=== PATIENT | male | born 1945 | race Two or more races ===

== ENCOUNTER 2020-05-01 17:25 | Outpatient (RCR) | payer MEDICARE, OTHER, SELFPAY ==
[2020-05-01] MEDS: COVID-19 VACC, MRNA(PFIZER)/PF 30 MCG/0.3 ML SYRINGE IM (16:02)
[2020-05-22] MEDS: COVID-19 VACC, MRNA(PFIZER)/PF 30 MCG/0.3 ML SYRINGE IM (15:28)
== END 2020-08-05 23:59 ==
LOC: IMMUN 17:25
PROVIDERS: Visit Provider Family Medicine
DX: Z23 Encounter for immunization (principal)
CPT/HCPCS: 0001A; 0002A; 91300

== ENCOUNTER → 2023-03-25 | Outpatient (CLI) | payer MEDICARE, OTHER, SELFPAY ==
--- NOTE | 2023-03-25 | HIP_PTH ---
PATHOLOGY RESULTS PATIENT: JOSEMANUEL PATTON LOC: [facility] U#:[id number] AGE/SX: 77/M ROOM: RE03/25/[address]: Dr. Familia Joya DO : 1945 BED: DIS: 03/25/2023 SPEC #: [id number] RECD: 03/25/23 15:19 STATUS: KENDALL REBetito #: [id number] JAMES: 03/25/23 00:[address]: Familia Joya DEPT: SURGICAL PATHOLOGY RECD BY: Jean-Pierre Luque ENTERED: 03/28/23 09:40 SP TYPE: TOTAL HIP OTHR DR: DIANA Tissues: Hip, NOS Procedures: Decalcification bone/plaque Surgery Specimen Level IV HEADER OPERATION: Right total hip arthroplasty PRE-OP DIAGNOSIS: Primary osteoarthritis right hip TISSUE SUBMITTED: Bone and tissue right hip MICROSCOPIC DIAGNOSIS Bone and tissue of right hip, total hip resection: Severe degenerative joint disease. AM:mian 03/31/2023 MICROSCOPIC DESCRIPTION Slides are reviewed. GROSS DESCRIPTION Received is one container labeled with the patient's name and designated bone and soft tissue right hip. The specimen consists of a hernandez femoral head with portion of femoral neck. The femoral head measures 5.5 x 5.5 x 5.0 cm and the femoral neck measures 1.5 cm in length. The articular surface displays prominent osteophyte formation, eburnation and bone erosion. Also present in the specimen container are multiple irregular fragments of bone reamings and pink-yellow soft tissue measuring in aggregate 10.0 x 9.0 x 3.0 cm. Shaft Mechanic sections are submitted in two cassettes as follows: 1 - soft tissue, 2??bone after decalcification. / SJ:mian 03/28/2023 TC:5 [facility]: [id number], [id number]
--- OUTSIDE RECORDS SUMMARY | 2023-03-25 15:59 | XMS RPT_ITS | CCD ---
Author Name Unknown Address [address] [place] [address] Organization [facility] Care Team Providers Care Land Manager Name Role Phone DANY MEDRANO, CHENG Giron Primary Care Physician Unavailable Primary Care Provider Crystal Saenz MD, Cheng Dhaliwal Primary Care Provider Dany MEDRANO, Cheng Dhaliwal Primary Care Provider [phone]( [phone] CHENG SAENZ MD Primary Care Unavailable DANY MEDRANO, CHENG Giron Attending Mago SAENZ MD, CHENG Giron Primary Care Unavailable CLARISSA COX, DR WEST Attending Crystal ROMO DO, DR WEST Attending Crystal SAENZ MD, CHENG Giron Primary Care Unavailable CHENG SAENZ MD Primary Care Unavailable DANY MEDRANO, CHENG Giron Attending Mago ROMO DO, DR WEST Attending Crystal SAENZ MD, CHENG Giron Primary Care Unavailable VALERIE ESPITIA Attending Mago BEARD MD, BELINDA Attending Crystal BEARD MD, BELINDA Referring Crystal BEARD MD, BELINDA Referring Crystal BEARD MD, BELINDA Referring Crystal bowman Allergies Allergy Classification Reported Allergen(s) Allergy Type Date of Onset Reaction(s) Facility (5 sources) terbinafine; Translations: [TERBINAFINE] Drug Allergy 10-18-2022 Rash [facility] Work Phone: Medications Current Medications Medication Drug Class(es) Dates Sig (Normalized) Sig (Original) 8 hr acetaminophen 650 mg extended release oral tablet (1 source) Start: 02-11-2023 Tylenol 8 HR Arthritis Pain 650 mg oral tablet, extended release Dose : 1,300 mg = 2 tab(s), Oral, q8h, PRN as needed for pain, # 24 tab(s), 0 Refill(s) Start Date: 02/11/23 Status: Ordered apixaban 5 mg oral tablet (19 sources) Factor Xa Inhibitor Start: 02-28-1968 End: 03-15-2023 Eliquis 5 mg oral tablet Dose : 5 mg = 1 tab(s), Oral, BID, # 180 tab(s), 3 Refill(s), Pharmacy: [id number], 182, cm, 03/11/22 9:59:00 EST, Height, 94.5 Start Date: 03/11/22 Stop Date: 03/06/23 Status: Ordered Completed/Discontinued Medications Medication Drug Class(es) Dates Sig (Normalized) Sig (Original) cholecalciferol, vitamin D3, (VITAMIN D3 ORAL) (1 source) Start: 04-24-2013 End: 04-08-2022 cholecalciferol, vitamin D3, (VITAMIN D3 ORAL) Take by mouth. 0 04/24/2013 04/08/2022 Discontinued Problems Active Problems Problem Classification Problem Date Documented Date Episodic/Chronic Cardiac dysrhythmias (20 sources) Chronic atrial fibrillation; Translations: [Paroxysmal atrial fibrillation] Onset: 09-19-2018 12-26-2020 Chronic Conduction disorders (20 sources) Complete atrioventricular block; Translations: [Atrioventricular block, complete] Onset: 09-19-2018 Chronic Coronary atherosclerosis and other heart disease (14 sources) Ischemic chest pain; Translations: [Chronic ischemic heart disease, unspecified] Onset: 09-19-2018 Chronic Disorders of lipid metabolism (17 sources) Mixed hyperlipidemia; Translations: [Mixed hyperlipidemia] Onset: 03-17-2022 12-26-2020 Chronic Essential hypertension (11 sources) Hypertensive disorder; Translations: [Essential (primary) hypertension] Onset: 09-19-2018 04-08-2022 Chronic Mycoses (15 sources) Onychomycosis; Translations: [Tinea unguium] Onset: 04-08-2022 12-26-2020 Episodic Osteoarthritis (19 sources) Osteoarthritis of hip; Translations: [Unilateral primary osteoarthritis, right hip] Onset: 04-08-2022 Chronic Other non-traumatic joint disorders (7 sources) Hip pain; Translations: [Pain in unspecified hip] Onset: 10-18-2022 03-11-2022 Episodic Melva-; endo-; and myocarditis; cardiomyopathy (except that caused by tuberculosis or sexually transmitted disease) (14 sources) Cardiomyopathy; Translations: [Other cardiomyopathies] Onset: 06-16-2018 Chronic Unclassified (3 sources) Patient encounter status 03-11-2022 Past or Other Problems Problem Classification Problem Date Documented Date Episodic/Chronic Other screening for suspected conditions (not mental disorders or infectious disease) (3 sources) Electrocardiogram abnormal; Translations: [Abnormal electrocardiogram [ECG] [EKG]] Onset: 05-14-2022 Episodic Results Test Name Value Interpretation Reference Range Facil ity Vital Signs Date Time Vital Sign Value Performing Clinician Lam baum 10-18-2022 13:04-0400 Body height 182.9 cm Valerie Espitia PA-C Work Phone: [facility] 10-18-2022 13:04-0400 Body weight 92.31 kg Valerie Espitia PA-C Work Phone: [facility] 10-18-2022 13:04-0400 Diastolic blood pressure 72 mm[Hg] Valerie Espitia PA-C Work Phone: [facility] 10-18-2022 13:04-0400 Heart rate 68 /min Valerie Espitia PA-C Work Phone: [facility] 10-18-2022 13:04-0400 SaO2% (BldA) [Mass fraction] 94 % Valerie Espitia PA-C Work Phone: [facility] 10-18-2022 13:04-0400 Systolic blood pressure 146 mm[Hg] Valerie Espitia PA-C Work Phone: [facility] 04-08-2022 11:33-0500 Body height 182.9 cm Belinda Beard MD Work Phone: [facility] 04-08-2022 11:33-0500 Body weight 93.98 kg Belinda Beard MD Work Phone: [facility] 04-08-2022 11:33-0500 Diastolic blood pressure 89 mm[Hg] Belinda Beard MD Work Phone: [facility] 04-08-2022 11:33-0500 Heart rate 65 /min Belinda Beard MD Work Phone: [facility] 04-08-2022 11:33-0500 SaO2% (BldA) [Mass fraction] 98 % Belinda Beard MD Work Phone: [facility] 04-08-2022 11:33-0500 Systolic blood pressure 173 mm[Hg] Belinda Beard MD Work Phone: [facility] Encounters Encounter Date Encounter Type Care Provider Facility Start: 03-03-[address] JENNA ROMO DO Fa cility:B Start: 03-02-2023 End: 03-03-[address] JENNA ROMO DO Facility:[facility] Start: 03-02-2023 End: 03-02-[address] JENNA ROMO DO [facility] Start: 02-14-2023 Telephone encounter Belinda Beard MD Work Phone: [facility] Cardiology Procedures Date Procedure Procedure Detail Performing Clinician Start: 10-18-2022 Follow-up visit Follow Up VALERIE ESPITIA Start: 05-14-2022 Myocardial spect mul tiple studies Belinda Beard MD Work Phone: Start: 10-05-2018 Electrocardiogram Start: 09-14-2018 Echocardiography Start: 06-15-2018 Maintenance procedur e for cardiac pacemaker system CHENG SAENZ MD Plan of Treatment Date Care Activity Detail Author Start: 10-29-2022 Covid-19 Vaccine () Covid-19 Vaccine () [facility] Start: 10-29-2022 Influenza vaccination [facility] Start: 02-28-2022 ADVANCE DIRECTIVE DISCUSSION ADVANCE DIRECTIVE DISCUSSION [facility] Start: 02-28-2022 DEPRESSION ASSESSMENT DEPRESSION ASSESSMENT [facility] Start: 10-29-2021 Influenza vaccination INFLUENZA (#1) [facility] Start: 10-05-2021 DIABETES SCREEN DIABETES SCREEN [facility] Start: 10-05-2021 Diabetes Screening Diabetes Screening [facility] Start: 07-17-2020 COVID-19 VACCINE (3 - Booster for Pfizer series) COVID-19 VACCINE (3 - Booster for Pfizer series) [facility] Start: 07-17-2020 COVID-19 VACCINE (3 - Pfizer series) COVID-19 VACCINE (3 - Pfizer series) [facility] Start: 2011 PNEUMOCOCCAL: 65+ (1 - PCV) PNEUMOCOCCAL: 65+ (1 - PCV) [facility] Start: 2006 RSV Vaccine (1 - 1-dose 60+ series) RSV Vaccine (1 - 1-dose 60+ series) [facility] Start: 1996 SHINGRIX VACCINE (1 of 2) SHINGRIX VACCINE (1 of 2) [facility] Start: 1991 COLOGUARD (FIT-DNA) COLOGUARD (FIT-DNA) [facility] Start: 1991 Colonoscopy COLONOSCOPY [facility] Start: 1991 COLORECTAL CANCER SCREENING COLORECTAL CANCER SCREENING [facility] Start: [address] COLONOGRAPHY [facility] Start: 1991 FECAL OCCULT BLOOD FECAL OCCULT BLOOD [facility] Start: 1991 SIGMOIDOSCOPY SIGMOIDOSCOPY [facility] Start: 1981 LIPID SCREEN LIPID SCREEN [facility] Start: 1965 Urine microalbumin profile [facility] Start: 1964 ANNUAL PCP TEAM CHRONIC DISEASE VISIT ANNUAL PCP TEAM CHRONIC DISEASE VISIT [facility] Start: 1964 BP CONTROLLED (<130/80) BP CONTROLLED (<130/80) [facility] in Start: 1964 Hepatitis B surface antibody level LDL CHOLESTEROL [facility] Start: 1964 HEPATITIS C SCREENING HEPATITIS C SCREENING [facility] Start: 1964 Hepatitis C screening Hepatitis C Screening [facility] Start: 1952 Pneumococcal Vaccine: 65+ (1 - PCV) Pneumococcal Vaccine: 65+ (1 - PCV) [facility] Start: 1952 Pneumococcal Vaccine: 65+ (1 of 2 - PCV) Pneumococcal Vaccine: 65+ (1 of 2 - PCV) [facility] Start: 1952 PNEUMOCOCCAL: 65+ (1 - PCV) PNEUMOCOCCAL: 65+ (1 - PCV) [facility] End: 04-08-2023 Echocardiography ECHO Cardiology Routine AV block, complete (HCC) Nonischemic cardiomyopathy (HCC) 1 Occurrences starting 04/08/2022 until 04/08/2023 [facility] Work Phone: Immunizations Immunization Date Immunization Notes Care Provider Fa nasir 05-22-2020 SARS-CoV-2 (COVID-19 ) mRNA BNT-162b2 shaileshx CHENG SAENZ MD [facility] 05-01-2020 SARS-CoV-2 (COVID-19 ) mRNA BNT-162b2 latha SAENZ MD [facility] Payers Date Payer Category Payer Unknown [id number] 2016 Unknown [id number] 2011 Medicare MEDICARE MEDICAR E A AND B [id number] 2011-Present [phone] [place] [address] Medicare [id number] 2011 Medicare [id number] 1946 Unknown [id number] 1945 Unknown [id number] 1945 Unknown [id number] 1946 Unknown [id number] 1945 Unknown [id number] Social History Date Type Detail Facility Start: 12-15-2020 End: 03-24-2022 Never smoked tobacco (finding) [facility] Sex Assigned At Male [facility] Tobacco smoking status NHIS Tobacco smoking consumption unknown [facility] Start: 1945 Sex Assigned At Not on file [facility] Start: 03-24-2022 Tobacco use and exposure Smokeless tobacco non-user [facility] Work Phone: Start: 03-24-2022 End: 10-19-2022 Alcohol intake Ex-drinker (finding) [facility] Start: 04-08-2022 End: 10-18-2022 History of Social function [facility] Start: 04-08-2022 End: 10-18-2022 Tobacco use panel [facility] NEGATED: Highlighted rowStart: NINF History of tobacco use Passive smoker [facility] Work Phone: Functional Status Date Assessment Result Facility 06-25-2021 Functional Status Home Living Ad ditional Information OBJECTIVE Vitals: BP 143/85 , O2sat 96%, HR 70 Posture: WNL Gait: antalgic gait with no AD and visible limp Transfers: WNL Sensation: no abnormalities or asymmetries Reflexes: NT Palpation: no pain at gluteal region, bursae site, or hip flexors insertion Edema: none AROM: WNL - significant weakness with SLR [facility] Clinical Notes 04-07-2021 to 02-14-2023 Telephone Encounter - Lala Marin - 02/14/2023 1:40 PM ESTTelephone Encounter - Mary Will - 02/14/2023 11:12 AM ESTTelephone Encounter - Reji Blanchard RN - 01/19/2023 12:08 PM ESTRadiology Note Date & Type Note Facility 02-14-2023 Miscellaneous Notes Summary: Form completed Completed, will fax form. Summary: device management Received a device management form from [facility]. Will scan clearance into chart and place in bin. documented in this encounter [facility] 01-19-2023 Miscellaneous Notes Summary: [facility] clearance Clearance form completed by Dr. Beard and return faxed at this time with most recent office visit note (10/18/2022), echocardiogram (05/14/2022) and stress test (05/14/2022) to [facility] as requested. Reji Blanchard RN January 19, 2023 12:15 PM Received a clearance form from [facility]. Patient is scheduled for surgery on 03/11/[address] Romo. Will scan clearance into chart and place in bin. documented in this encounter [facility] 10-19-2022 Instructions Valerie Espitia PA-C - 10/19/2022 6:11 AM EDT Reviewed last OV note, labs, device check, BP/HR log, and cardiac testing. Discussed results of today's device check as well as his previously completed echo and stress test. Continue routine/remote device checks. Continue current therapy; no refills requested. Monitor BP outside the office and take BP log to next visit with provider for review. Reviewed his BP/HR log with SBP in the 1teens-130s; HR 60-80s. Low salt heart healthy diet and daily AM weight checks advised. Followup with PCP as scheduled with routine labs. Reviewed previously completed labs from 02/2022. Check AM weight routinely. Reviewed acute signs/symptoms of acute CHF exacerbation that should prompt him to contact the office should they arise. Advise routine CBC at least every 6-12 months in patients on chronic oral anticoagulation therapy to assess for occult anemia. Given h/o non-occlusive CAD on [facility] with 40% proximal RCA lesion, h/o reduced EF, and previous FLP results, advise consideration of moderately intense statin age, exercise, and diet change. Defer statin therapy to PCP. documented in this encounter [facility] 10-18-2022 Note HNO ID: [id number] Author: Valerie Espitia PA-C Service: ? Author Type: Physician Towel Sewer Type: Progress Notes Filed: 10/19/2022 9:33 AM Note Text: [facility] ELECTROPHYSIOLOGY OUTPATIENT VISIT DATE October 18, 2022 ESTABLISHED PATIENT OUTPATIENT VISIT TYPE ESTABLISHED PATIENT PRIMARY CARE PHYSICIAN: Cheng Saenz [address] [place] [address] CHIEF COMPLAINT: Follow Up (Medtronic BiV PPM implanted for NICM and AV block) HISTORY OF PRESENT ILLNESS: Mr. Sosa is a 77 year old male known to Dr. 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 He was last seen in the office by Dr Beard on 04/08/2022 for routine follow up with device check. At that time, he reported recent diagnosis of osteoarthritis/osteoporosis with pending MRI. He did admit to some slight chest discomfort approximately 4-6 times over the past year. He was not aware of any specific trigger for his chest discomfort, but TUMs often resolves his chest discomfort. He further noted some slight lightheadedness when standing upright after working or leaning over. His device check at his 04/08/22 visit revealed 8 VT episodes longest lasting 8 seconds on 12/01/21 and 56 NSVT episodes longest lasting 4 seconds on 12/15/21. Due to his chest discomfort complaints, VT/NSVT on device check, and h/o non-occlusive CAD, a stress test and an echo were advised. He was to return in 6months for followup with device check. His echo on 05/14/22 revealed mild LVH with mildly decreased EF of 50% +/-5%, grade I LVDD, low normal RVSF, mild MR/TR/AI with RVSP of 33mm Hg. His stress test on 05/14/22 showed no evidence of inducible myocardial ischemia, evidence of scarred myocardium with normal LVSF and RVSF with EF of 62%. A remote device check on 07/16/2022 revealed 5.8 years until BRENNON with 22% Apacing, 95.6% Rvpacing without device dependence or AF episodes. He did have 20 NSVT episodes with the longest lasting 1 sec on 07/07/2022 and 1 VT episode lasting 6 seconds on 06/06/2022. He returns today for routine followup with device check. He saw his PCP within the past 6months with no changes or recent labs. He is typically seen yearly. He does note being diagnosed with a swollen blood vessel in his right eye for which he follows with an land resource specialist and has been receiving injections in the right eye. His last injection was more than 3months ago and he is scheduled for a followup with his eye doctor next week with c/o increased blurry vision in the right eye. He denies any chest pain, dyspnea at rest, palpitations, bleeding issues, lightheadedness, dizziness, syncope, orthopnea, PND, LE edema, fever, chills, or cough. He has been sleeping well at bedtime. He does admit to exertional dyspnea with moderate-heavy work and walking up an incline. Stairs do not tend to induce dyspnea. His appetite is good and weight is down 4# since previous visit. Energy level is fair-good. No refills requested. BP/HR log with SBP in the 1teens-130s and HR 60-80s. Reviewed of scanned documents reveals labs from 03/17/2022 with a normal CMP, PSA of 2.55, FLP with TG-158; TC-219; HDL-36, LDL-151; and CBC with HANDH of 16.5/47.9 PAST MEDICAL HISTORY Diagnosis Date AV block BPH (benign prostatic hyperplasia) CAD (coronary artery disease) CHB (complete heart block) (HCC) HTN (hypertension) NICM (nonischemic cardiomyopathy) (HCC) PAF (paroxysmal atrial fibrillation) (HCC) Presence of biventricular cardiac pacemaker Symptomatic bradycardia PAST SURGICAL HISTORY Procedure Laterality Date ANESTH,PACEMAKER INSERTION 06/15/2018 Medtronic Bi-Ventricular PROSTATE SURGERY HX RT/LT HEART CATHETERS 05/04/2007 mild LVD; generalis coronary plaque disease with a focal 40% stenosis of the proximal LAD. RT/LT HEART CATHETERS 06/13/2018 no CAD, there was a 40% RCA blockage proximally(very large dominant artery); LVEF 35-40%; manual presure was used. SOCIAL HISTORY Social History Tobacco Use Smoking status: Never Passive exposure: Never Smokeless tobacco: Never Vaping Use Vaping Use: Never used Substance Use Topics Alcohol use: Not Currently Drug use: Never FAMILY HISTORY Problem Relation Age of Onset Heart Attack Mother Heart disease Mother Hypertension Mother Hypertension Father Heart disease Father Heart Attack Father Diabetes Father Heart Attack Sister Diabetes Sister Heart Attack Sister ALLERGIES Allergen Reactions Terbinafine Rash MEDICATIONS: apixaban (ELIQUIS) 5 mg tab(s)Take 1 tablet by mouth twice daily.Disp: 180 tabletRfl: 3 carvedi (more content not included)... [facility] 10-18-2022 History of Presen t illness Narrative Images from the original note were not included. [facility] ELECTROPHYSIOLOGY OUTPATIENT VISIT DATE October 18, 2022 ESTABLISHED PATIENT OUTPATIENT VISIT TYPE ESTABLISHED PATIENT PRIMARY CARE PHYSICIAN: [place] [address] [place] [address] CHIEF COMPLAINT: Follow Up (Medtronic BiV PPM implanted for NICM and AV block) HISTORY OF PRESENT ILLNESS: Mr. Sosa is a 77 year old male known to Dr. 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 He was last seen in the office by Dr Beard on 04/08/2022 for routine follow up with device check. At that time, he reported recent diagnosis of osteoarthritis/osteoporosis with pending MRI. He did admit to some slight chest discomfort approximately 4-6 times over the past year. He was not aware of any specific trigger for his chest discomfort, but TUMs often resolves his chest discomfort. He further noted some slight lightheadedness when standing upright after working or leaning over. His device check at his 04/08/22 visit revealed 8 VT episodes longest lasting 8 seconds on 12/01/21 and 56 NSVT episodes longest lasting 4 seconds on 12/15/21. Due to his chest discomfort complaints, VT/NSVT on device check, and h/o non-occlusive CAD, a stress test and an echo were advised. He was to return in 6months for followup with device check. His echo on 05/14/22 revealed mild LVH with mildly decreased EF of 50% +/-5%, grade I LVDD, low normal RVSF, mild MR/TR/AI with RVSP of 33mm Hg. His stress test on 05/14/22 showed no evidence of inducible myocardial ischemia, evidence of scarred myocardium with normal LVSF and RVSF with EF of 62%. A remote device check on 07/16/2022 revealed 5.8 years until BRENNON with 22% Apacing, 95.6% Rvpacing without device dependence or AF episodes. He did have 20 NSVT episodes with the longest lasting 1 sec on 07/07/2022 and 1 VT episode lasting 6 seconds on 06/06/2022. He returns today for routine followup with device check. He saw his PCP within the past 6months with no changes or recent labs. He is typically seen yearly. He does note being diagnosed with a swollen blood vessel in his right eye for which he follows with an land resource specialist and has been receiving injections in the right eye. His last injection was more than 3months ago and he is scheduled for a followup with his eye doctor next week with c/o increased blurry vision in the right eye. He denies any chest pain, dyspnea at rest, palpitations, bleeding issues, lightheadedness, dizziness, syncope, orthopnea, PND, LE edema, fever, chills, or cough. He has been sleeping well at bedtime. He does admit to exertional dyspnea with moderate-heavy work and walking up an incline. Stairs do not tend to induce dyspnea. His appetite is good and weight is down 4# since previous visit. Energy level is fair-good. No refills requested. BP/HR log with SBP in the 1teens-130s and HR 60-80s. Reviewed of scanned documents reveals labs from 03/17/2022 with a normal CMP, PSA of 2.55, FLP with TG-158; TC-219; HDL-36, LDL-151; and CBC with H&H of 16.5/47.9 PAST MEDICAL HISTORY Diagnosis Date AV block BPH (benign prostatic hyperplasia) CAD (coronary artery disease) CHB (complete heart block) (HCC) HTN (hypertension) NICM (nonischemic cardiomyopathy) (HCC) PAF (paroxysmal atrial fibrillation) (HCC) Presence of biventricular cardiac pacemaker Symptomatic bradycardia PAST SURGICAL HISTORY Procedure Laterality Date ANESTH,PACEMAKER INSERTION 06/15/2018 Medtronic Bi-Ventricular PROSTATE SURGERY HX RT/LT HEART CATHETERS 05/04/2007 mild LVD; generalis coronary plaque disease with a focal 40% stenosis of the proximal LAD. RT/LT HEART CATHETERS 06/13/2018 no CAD, there was a 40% RCA blockage proximally(very large dominant artery); LVEF 35-40%; manual presure was used. SOCIAL HISTORY Social History Tobacco Use Smoking status: Never Passive exposure: Never Smokeless tobacco: Never Vaping Use Vaping Use: Never used Substance Use Topics Alcohol use: Not Currently Drug use: Never FAMILY HISTORY Problem Relation Age of Onset Heart Attack Mother Heart disease Mother Hypertension Mother Hypertension Father Heart disease Father Heart Attack Father Diabetes Father Heart Attack Sister Diabetes Sister Heart Attack Sister ALLERGIES Allergen Reactions Terbinafine Rash MEDICATIONS: apixaban (ELIQUIS) 5 mg tab(s)^Take 1 tablet by mouth twice daily.^Disp: 180 tablet^Rfl: 3 carvedilol (COREG) 12.5 mg tablet^Take 1 tablet by mouth twice daily.^Disp: 14 tablet^Rfl: 1 lisinopril (ZESTRIL, PRINIVIL) 10 mg tablet^TAKE 1 TABLET BY MOUTH ONCE DAILY FOR 90 DAYS^Disp: ^Rfl: multivitamin with iron (DAILY MULTIVITAMINS/IRON ORAL)^Take by mouth.^Disp: ^Rfl: omega-3 DHA-EPA (FISH OIL) 1,200 (144-216) mg capsule^Take 1 capsule by mouth daily with breakfast.^Disp: ^Rfl: REVIEW OF SYSTEMS: Review of Systems He denies any chest pain, dyspnea at rest, palpitations, bleeding issues, lightheadedness, dizziness, syncope, orthopnea, PND, LE edema, fever, chills, or cough. He has been sleeping well at bedtime. He does admit to exertional dyspnea with moderate-heavy work and walking up an incline. Stairs do not tend to induce dyspnea. His appetite is good and weight is down 4# since previous visit. Energy level is fair-good. PHYSICAL EXAMINATION: BP 146/72 (BP Site: Left Arm, BP Position: Sitting, BP Cuff Size: Regular Adult) Pulse 68 Ht 182.9 cm (6') Wt 92.3 kg (203 lb 8 oz) SpO2 94% BMI 27.60 kg/m Physical Exam Vitals and nursing note reviewed. Constitutional: General: He is not in acute distress. Appearance: Normal appearance. He is not ill-appearing, toxic-appearing or diaphoretic. Comments: Older well appearing adult male in NAD; alone at today's visit Flat affect HENT: Head: Normocephalic and atraumatic. Ears: Comments: Hearing grossly intact bilaterally Nose: Nose normal. Eyes: General: No scleral icterus. Extraocular Movements: Extraocular movements intact. Conjunctiva/sclera: Conjunctivae normal. Pupils: Pupils are equal, round, and reactive to light. Comments: +glasses Neck: Vascular: No carotid bruit. Cardiovascular: Rate and Rhythm: Normal rate and regular rhythm. Pulses: Radial pulses are 1+ on the right side and 1+ on the left side. Posterior tibial pulses are 1+ on the right side and 1+ on the left side. Heart sounds: Normal heart sounds, S1 normal and S2 normal. No murmur heard. Comments: Pacemaker in the left upper lateral chest wall with well healed incisional site and no evidence of device migration or pocket erosion. Pulmonary: Effort: Pulmonary effort is normal. Breath sounds: Normal breath sounds. No wheezing, rhonchi or rales. Abdominal: General: Bowel sounds are normal. There is no distension. Palpations: Abdomen is soft. Tenderness: There is no abdominal tenderness. Musculoskeletal: General: No swelling. Normal range of motion. Cervical back: Neck supple. Right lower leg: No edema. Left lower leg: No edema. Skin: General: Skin is warm and dry. Coloration: Skin is not pale. Findings: No erythema. Neurological: General: No focal deficit present. Mental Status: He is alert and oriented to person, place, and time. Mental status is at baseline. Motor: No weakness. Coordination: Coordination normal. Gait: Gait normal. Psychiatric: Mood and Affect: Mood normal. Behavior: Behavior normal. Thought Content: Thought content normal. Judgment: Judgment normal. 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 CARDIOVASCULAR MEDICINE TESTING: Device Check 10/18/22: Patient's device was interrogated for medical necessity in the office today by my staff. There was normal device function. Approximately 5.3 years until BREN[place]. There were normal/stable sensing/threshold/impedance values. 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 There were no atrial arrhythmias detected. There were 36 NSVT episodes of, longest was 5 seconds on 09/17/2022. There was 1 VT episode lasting 5 seconds on 09/16/2022. [place] shaped histograms. No permanent changes were made. Echo 05/14/2022: CONCLUSIONS: - Exam indication: Frequent PVCs - The left ventricle is normal in size. There is mild concentric left ventricular hypertrophy. Left ventricular systolic function is mildly decreased. EF = 50 5% (visual est.) Grade I left ventricular diastolic dysfunction. - The right ventricle is normal in size. Right ventricular systolic function is low normal. Mild MR/TR/AI RVSP 33 mmhg - Exam was compared with the prior echocardiographic exam performed on 09/12/2018. Stress test 05/14/2022: CONCLUSIONS: 1. SPECT Perfusion Study: Normal. 2. There is no scintigraphic evidence for inducible ischemia. 3. No evidence of scarred myocardium. 4. Left ventricle is normal in size. The left ventricle systolic function is normal. 5. Right ventricle is normal in size. The right ventricle systolic function is normal. 6. This is a low risk scan. Gated Stress FBP Gated Rest FBP LVEF % 62 42 [facility] 06/13/2018: [facility] DOS: 06/13/2018 Impression: 1. No significant coronary artery disease. There was a 40% right coronary artery blockage proximally. This is a very large dominant artery. 2. Left ventricular function is depressed moderately with an ejection fraction between 35% and 40%. 3. Manual pressure was used with wrapping following the procedure. The patient had no complications. Dr. Beard was apprised of the findings. I have personally reviewed the Laboratory Testing, Echocardiogram, Stress Test: Nuclear (Non-PET), Cardiac Catheterization/Percutaneous Coronary Intervention (PCI), and Device Check. IMPRESSION AND PLAN: 1. Nonischemic cardiomyopathy (HCC) -He has a h/o non-ischemic cardiomyopathy with initial EF of 35-40% and 40% proximal RCA lesion on [facility] in 05/2018. -Due to 2nd degree AVB and intermittent complete heart block with reduced EF he is s/p Medtronic BiV PPM placement in 05/2018. -He is maintained on optimally tolerated GDMT including Coreg and Lisinopril; no refills requested. -Reviewed latest labs from 02/2022; defer routine lab monitoring to PCP. -He appears well compensated on today's exam. -Repeat echo in 04/2022 revealed a near normalized EF of 45-55%. -Low salt diet and routine AM weight checks advised. -Monitor for acute signs/symptoms of CHF exacerbation that should prompt him to contact the office should they arise. -Reviewed results of 04/2022 echo and stress test with patient as well as Dr. Beard in conjunction with today's device check. -Discussed results of today's device check which continues to reveal episodes of NSVT/VT with HR up to 160s. -Continue routine/remote device checks. 2. Complete atrioventricular block (HCC) -He is s/p Medtronic BiV PPM in 05/2018 due to 2nd degree AV block with intermittent complete heart block. -He denies any episodes of lightheadedness or dizziness. -He is device dependent with 95.2% RV pacing. -Continue routine device checks. 3. Biventricular cardiac pacemaker in situ -He is s/p Medtronic BiV PPM placement in 05/2018 for reduced EF of 35-40% with 2nd degree AV block and intermittent complete heart block. -Reviewed results of today's device check with patient which reveals 5.3 years until [place] with 27.8% Apacing, 95.2% Rvpacing with device dependence, no episodes of AF. He did have 36 NSVT episodes with the longest episode lasting 4 seconds on 09/17/22 and 1 VT episode lasting 5seconds on 09/24/22. -He denies any associated symptomatic episodes corresponding with noted device findings. -Final device interrogation review per Dr. Beard. -Continue routine/remote device checks. 4. Paroxysmal atrial fibrillation (HCC) -He has a h/o asymptomatic PAF maintained on Eliquis 5mg BID for a [id number] VASc score of at least 4 (age, HTN, and CHF) with no acute bleeding issues noted. -He is also on Coreg 12.5mg BID. -He denies any symptomatic episodes. -Advise a routine CBC at least every 6-12 months in patients on chronic oral anticoagulation therapy to assess for occult anemia. -Continue to monitor AF burden and rate control with routine device checks. -Today's device check reveals no episodes of AF. 5. Primary hypertension -He has a h/o HTN and is maintained on Coreg and Lisinopril. -Reviewed BP/HR log revealing good BP and heart rate control. -Continue to monitor BP/HR outside the office and take BP log to next visit with provider for review. -Low salt diet. -No refills requested. -Reviewed 02/2022 labs from PCP; defer routine lab monitoring to PCP. 6. Arteriosclerosis of coronary artery -He is s/p LHC in 05/2018 with evidence of 40% proximal RCA disease. -Reviewed his recent FLP from 02/2022 with elevated TC/TG/LDL. -He is not currently noted to be on a statin and has no noted intolerance/allergy. -Given his non-occlusive CAD and dyslipidemia, would advise at least low-moderate dose statin with routine FLP and CMP monitoring; defer to PCP. -Encouraged a heart healthy diet and regular exercise to maintain optimal weight. 7. NSVT (nonsustained ventricular tachycardia) (HCC) -He continues to have episodes of NSVT on his device check with negative stress test and echo in 04/2022. -He is maintained on Coreg and Lisinopril for a h/o non-ischemic cardiomyopathy. -Consider changing Coreg to Toprol XL if NSVT persists or worsens. -May need to consider repeat LHC vs device upgrade if develops episodes of sustained VT as current BiV PPM is unable to intervene. Valerie Espitia PA-C documented in this encounter [facility] 10-01-2022 Note HNO ID: [id number] Author: Jannet Mejia MA Service: ? Author Type: Bottle Tester Type: Progress Notes Filed: 10/01/2022 1:59 PM Note Text: Summary: Cardiac Reports Echocardiography Report: Transthoracic Echo [facility] Date of service: 05/14/2022 7:59:31 AM Impression: - Exam indication: Frequent PVCs - The left ventricle is normal in size. There is mild concentric left ventricular hypertrophy. Left ventricular systolic function is mildly decreased. EF = 50 ? 5% (visual est.) Grade I left ventricular diastolic dysfunction. - The right ventricle is normal in size. Right ventricular systolic function is low normal. Mild MR/TR/AI. RVSP 33 mmhg. - Exam was compared with the prior echocardiographic exam performed on 09/12/2018. NM Cardiac Stress Test Report [facility] DOS: 05/14/2022 Impression: 1. SPECT Perfusion Study: Normal. 2. There is no scintigraphic evidence for inducible ischemia. 3. No evidence of scarred myocardium. 4. Left ventricle is normal in size. The left ventricle systolic function is normal. 5. Right ventricle is normal in size. The right ventricle systolic function is normal. 6. This is a low risk scan. Gated Stress FBP Gated Rest FBP LVEF % 62 42 Prior Study Comparison No prior nuclear cardiology exam available for comparison. Cardiac Stress Test Report [facility] DOS: 06/13/2018 Impression: 1. No significant coronary artery disease. There was a 40% right coronary artery blockage proximally. This is a very large dominant artery. 2. Left ventricular function is depressed moderately with an ejection fraction between 35% and 40%. 3. Manual pressure was used with wrapping following the procedure. The patient had no complications. Dr. Beard was apprised of the findings. EKG Report [facility] DOS: 06/16/2018 Impression: Vent. Rate : 063 BPM Atrial Rate : 357 BPM P-R Int : 000 ms QRS Dur : 118 ms QT Int : 500 ms P-R-T Axes : 000 -59 194 degrees QTc Int : 511 ms Ventricular-paced rhythm with premature ventricular or aberrantly conducted complexes Abnormal ECG CXR Report [facility] DOS: 10/05/2018 Impression: No acute cardiopulmonary disease. Electrophysiology Operative Report [facility] DOS: 06/15/2018 Procedure: BIV Pacemaker implantation Preoperative Diagnosis: complete heart block and EF of 40% - will require 100% pacing Postoperative Diagnosis: complete heart block and EF of 40% - will require 100% pacing Estimated Blood Loss: 30 Complications: none Summary: Successful implantation of a Medtronic BiV Pacemaker (FRAUD EXAMINER-P) Surgeon: Belinda Beard MD [facility] 10-01-2022 History of Presen t illness Narrative Summary: Cardiac Reports Echocardiography Report: Transthoracic Echo [facility] Date of service: 05/14/2022 7:59:31 AM Impression: - Exam indication: Frequent PVCs - The left ventricle is normal in size. There is mild concentric left ventricular hypertrophy. Left ventricular systolic function is mildly decreased. EF = 50 5% (visual est.) Grade I left ventricular diastolic dysfunction. - The right ventricle is normal in size. Right ventricular systolic function is low normal. Mild MR/TR/AI. RVSP 33 mmhg. - Exam was compared with the prior echocardiographic exam performed on 09/12/2018. NM Cardiac Stress Test Report [facility] DOS: 05/14/2022 Impression: 1. SPECT Perfusion Study: Normal. 2. There is no scintigraphic evidence for inducible ischemia. 3. No evidence of scarred myocardium. 4. Left ventricle is normal in size. The left ventricle systolic function is normal. 5. Right ventricle is normal in size. The right ventricle systolic function is normal. 6. This is a low risk scan. Gated Stress FBP Gated Rest FBP LVEF % 62 42 Prior Study Comparison No prior nuclear cardiology exam available for comparison. Cardiac Stress Test Report [facility] DOS: 06/13/2018 Impression: 1. No significant coronary artery disease. There was a 40% right coronary artery blockage proximally. This is a very large dominant artery. 2. Left ventricular function is depressed moderately with an ejection fraction between 35% and 40%. 3. Manual pressure was used with wrapping following the procedure. The patient had no complications. Dr. Beard was apprised of the findings. EKG Report [facility] DOS: 06/16/2018 Impression: Vent. Rate : 063 BPM Atrial Rate : 357 BPM P-R Int : 000 ms QRS Dur : 118 ms QT Int : 500 ms P-R-T Axes : 000 -59 194 degrees QTc Int : 511 ms Ventricular-paced rhythm with premature ventricular or aberrantly conducted complexes Abnormal ECG CXR Report [facility] DOS: 10/05/2018 Impression: No acute cardiopulmonary disease. Electrophysiology Operative Report [facility] DOS: 06/15/2018 Procedure: BIV Pacemaker implantation Preoperative Diagnosis: complete heart block and EF of 40% - will require 100% pacing Postoperative Diagnosis: complete heart block and EF of 40% - will require 100% pacing Estimated Blood Loss: 30 Complications: none Summary: Successful implantation of a Medtronic BiV Pacemaker (FRAUD EXAMINER-P) Surgeon: Belinda Beard MD [facility] documented in this encounter [facility] 05-14-2022 Note HNO ID: [id number] Author: RT Dorie(R) Service: ? Author Type: Technologist Type: Progress Notes Filed: 05/14/2022 11:18 AM Note Text: RADIOLOGY SERVICE PROGRESS NOTE SERVICE DATE: 05/14/2022 SERVICE TIME: 11:17 AM PATIENT IDENTITY VERIFICATION COMPLETED USING TWO (2) STANDARD IDENTIFIERS: Name and Date of confirmed by patient verbally FALL SCREENING: Has the patient had 2 falls in the last year or 1 fall with injury or currently using an Ambulatory Assistive Device (Walker, Cane, Wheelchair, Crutches, etc.)? No PATIENT GENDER DATA: .male : No ALLERGIES: NA MEDICATIONS REVIEWED: Not applicable PATIENT RELEVANT IMPLANT DATA REVIEWED: Not Applicable CREATININE: Creatinine Date Value Ref Range Status 10/05/2018 0.798 0.670 - 1.170 MG/DL Final Comment: Patients receiving either N-Acetylcysteine (NAC) or Metamizole prior to venipuncture, may have falsely depressed results. 06/14/2018 0.910 0.670 - 1.170 MG/DL Final Comment: Patients receiving either N-Acetylcysteine (NAC) or Metamizole prior to venipuncture, may have falsely depressed results. 06/13/2018 0.975 0.670 - 1.170 MG/DL Final Comment: Patients receiving either N-Acetylcysteine (NAC) or Metamizole prior to venipuncture, may have falsely depressed results. eGFR- Date Value Ref Range Status 10/05/2018 Greater than 60 ML/MIN Final P.O.C.T. RESULTS: N/A May 14, [address] PERFORMED: No IV SITE: Ambulatory: A peripheral IV was started in the Right antecubital site with a Angio cath: 24 gauge. POST EXAM PIV STATUS: Discontinued PROCEDURE TYPE: NM Stress: 14.0 mCi [id number] was administered IV for Rest Imaging at 0750 by DEM2. 30.8 mCi [id number] was administered IV for Stress Imaging at 1050 by DEM2. ADMINISTRATION TIME: 1050 PATIENT DISCHARGED TO: Ambulatory patient, left [place] department area. A Diagnostic radioactive procedure has taken place, with no further precautions necessary other than routine body substance precautions. More information regarding radiation safety can be found using this link: [email or web address]%20Me [email or web address] SIGNATURE: RT Dorie(R) PATIENT NAME: Elías Sosa DATE: May 14, 2022 TIME: 11:17 AM PAGER/CONTACT #: [facility] 05-14-2022 History of Presen t illness Narrative RADIOLOGY SERVICE PROGRESS NOTE SERVICE DATE: 05/14/2022 SERVICE TIME: 11:17 AM PATIENT IDENTITY VERIFICATION COMPLETED USING TWO (2) STANDARD IDENTIFIERS: Name and Date of confirmed by patient verbally FALL SCREENING: Has the patient had 2 falls in the last year or 1 fall with injury or currently using an Ambulatory Assistive Device (Walker, Cane, Wheelchair, Crutches, etc.)? No PATIENT GENDER DATA: .male : No ALLERGIES: NA MEDICATIONS REVIEWED: Not applicable PATIENT RELEVANT IMPLANT DATA REVIEWED: Not Applicable CREATININE: Creatinine Date Value Ref Range Status 10/05/2018 0.798 0.670 - 1.170 MG/DL Final Comment: Patients receiving either N-Acetylcysteine (NAC) or Metamizole prior to venipuncture, may have falsely depressed results. 06/14/2018 0.910 0.670 - 1.170 MG/DL Final Comment: Patients receiving either N-Acetylcysteine (NAC) or Metamizole prior to venipuncture, may have falsely depressed results. 06/13/2018 0.975 0.670 - 1.170 MG/DL Final Comment: Patients receiving either N-Acetylcysteine (NAC) or Metamizole prior to venipuncture, may have falsely depressed results. eGFR- Date Value Ref Range Status 10/05/2018 Greater than 60 ML/MIN Final P.O.C.T. RESULTS: N/A May 14, [address] PERFORMED: No IV SITE: Ambulatory: A peripheral IV was started in the Right antecubital site with a Angio cath: 24 gauge. POST EXAM PIV STATUS: Discontinued PROCEDURE TYPE: NM Stress: 14.0 mCi [id number] was administered IV for Rest Imaging at 0750 by DEM2. 30.8 mCi [id number]-[place] was administered IV for Stress Imaging at 1050 by DEM2. ADMINISTRATION TIME: 1050 PATIENT DISCHARGED TO: Ambulatory patient, left [place] department area. A Diagnostic radioactive procedure has taken place, with no further precautions necessary other than routine body substance precautions. More information regarding radiation safety can be found using this link: [email or web address]%20N uclear%20Medicine%20Procedures.p df SIGNATURE: RT Dorie(Concha) PATIENT NAME: Elías Sosa DATE: May 14, 2022 TIME: 11:17 AM PAGER/CONTACT #: documented in this encounter [facility] 04-30-2022 Miscellaneous Notes LMOM w the [patient's date and time of stress and echo. May 14 @ 7:45AM. Monserrat Mann documented in this encounter [facility] 04-27-2022 Miscellaneous Notes Patient called requesting the following refill. Requested Prescriptions Pending Prescriptions Disp Refills carvedilol (COREG) 12.5 mg tablet 14 tablet 0 Sig: Take 1 tablet by mouth twice daily. apixaban (ELIQUIS) 5 mg tab(s) 14 tablet 0 Sig: Take 1 tablet by mouth twice daily for 7 days. Patient last appointment: 04/08/2022 Patient Phone numbers: [phone] (home) Request is for script(s) to be escript to pharmacy. [facility] in [place], [place] PATIENT IS ON VACATION AND THOUGHT HE HAD ENOUGH MEDS WITH HIM! HE WOULD LIKE A 7 DAY SUPPLY (14 TABS) OF EACH SCRIPT SENT TO [place]. Roxie Edmonds documented in this encounter [facility] 04-14-2022 Note ORIGINAL EXAMINATION: MRI OF THE RIGHT HIP WITHOUT CONTRAST04/14/2022 2:47 pm TECHNIQUE: Multiplanar multisequence MRI of the right hip was performed without the administration of intravenous contrast. COMPARISON: Radiographs 06/03/2021. HISTORY: ORDERING SYSTEM PROVIDED HISTORY: Reason for Exam: Severe hip pain. FINDINGS: TENDONS: Mild insertional gluteus minimus tendinosis without evidence of tear. Unremarkable gluteus medius tendon insertion. The insertion of the iliopsoas tendon is intact. Mild hamstring origin tendinosis. JOINTS: Diffuse high-grade, essentially full-thickness chondral loss is noted of the hip with reactive subchondral marrow edema and sizable marginal osteophytes. Complex tearing is noted of the anterior superior acetabular labrum at the approximate 1 to 2 o'clock position. Small associated intra labral cyst. There is also complex tearing of the superior labrum. Linear signal abnormality of the posterior and posteroinferior labrum is noted also compatible with tear. There is no evidence of avascular necrosis. Trace volume hip effusion with synovitis, likely reactive. No significant degenerative changes are noted of the included right sacroiliac joint. OSSEOUS STRUCTURES: No focal marrow replacing lesions are identified. There is no fracture. SOFT TISSUES: Moderate focal atrophy of the gluteus minimus muscle. No significant muscle edema. Advanced atrophy of the proximal rectus femoris myotendinous junction at the caudal aspect of the field of view. No fluid signal intensity is noted at the region of the trochanteric iliopsoas bursa to indicate bursitis. The included portions of the sciatic nerve are normal in signal and morphology, without evidence of mass lesion. INTERNAL ORGANS: Evaluation of the internal organs of the pelvis is limited on this small field of view study tailored for evaluation of the musculoskeletal system. Trabeculated and prominent urinary bladder wall which may relate to under distension versus chronic outlet obstruction. Otherwise, no gross abnormality is seen in the pelvic organs. IMPRESSION: 1. Advanced hip osteoarthrosis. Trace volume hip joint effusion with synovitis, likely reactive. 2. Near circumferential labral tearing. 3. Additional findings, as above. Interpreted by: Aubrey Tong DO Preliminary Report By: Aubrey Tong DO Electronically signed By Aubrey Tong DO Dictated Date: 04/14/2022 3:19:43 PM Prelim Date: 04/14/2022 3:27:09 PM Sign Date: 04/14/2022 3:27:09 PM Ordering Provider: [facility] 04-14-2022 Note ORIGINAL EXAMINATION: MRI OF THE LEFT HIP WITHOUT CONTRAST04/14/2022 2:45 pm TECHNIQUE: Multiplanar multisequence MRI of the hip was performed without the administration of intravenous contrast. COMPARISON: Bilateral hip radiographs 06/03/2021. HISTORY: ORDERING SYSTEM PROVIDED HISTORY: Reason for Exam: Severe hip pain FINDINGS: TENDONS: The insertions of the gluteus medius and gluteus minimus tendons are intact. The insertion of the iliopsoas tendon is intact. Mild left hamstring origin tendinosis. The visible abductor as well as rectus femoris tendon origins are intact. JOINTS: Diffuse severe, near full-thickness chondral loss of the hip is noted with sizable marginal osteophytes. Subtle reactive subchondral marrow edema/cystic changes as well as subchondral sclerosis. There is a multilobulated paralabral cyst arising from the superior labrum measuring approximately 3.3 cm AP dimension. Small posteroinferior paralabral cyst measuring up to 0.6 cm. Additional tinier posterosuperior and posterior intra labral cysts. These findings indicate underlying labral tears. Additional intermediate signal of the labrum is compatible degeneration. There is no evidence of avascular necrosis. No significant hip joint effusion is evident. No significant degenerative changes are noted the included left sacroiliac joint. Mild osteophytosis of the pubic symphysis. OSSEOUS STRUCTURES: No focal marrow replacing lesions are identified. There is no fracture. SOFT TISSUES: Mild atrophy of left gluteus minimus muscle without corresponding edema. No fluid signal intensity is noted at the region of the trochanteric or iliopsoas bursa to indicate bursitis. The visible left sciatic nerve is normal in signal and morphology, without evidence of mass lesion. INTERNAL ORGANS: Evaluation of the internal organs of the pelvis is limited on this small field of view study tailored for evaluation of the musculoskeletal system. Urinary bladder wall prominence is likely secondary to under distension. Otherwise, no gross abnormality is seen in the pelvic organs. Small fat containing left inguinal hernia. IMPRESSION: 1. Advanced osteoarthrosis of the left hip. 2. Multiple paralabral and intra labral cysts indicating underlying labral tears. These findings are superimposed upon labral degeneration. Interpreted by: Aubrey Tong DO Preliminary Report By: Aubrey Tong DO Electronically signed By Aubrey Tong DO Dictated Date: 04/14/2022 3:12:24 PM Prelim Date: 04/14/2022 3:19:31 PM Sign Date: 04/14/2022 3:19:31 PM Ordering Provider: [facility] 04-14-2022 Note ORIGINAL EXAMINATION: MRI OF THE LEFT HIP WITHOUT CONTRAST04/14/2022 2:45 pm TECHNIQUE: Multiplanar multisequence MRI of the hip was performed without the administration of intravenous contrast. COMPARISON: Bilateral hip radiographs 06/03/2021. HISTORY: ORDERING SYSTEM PROVIDED HISTORY: Reason for Exam: Severe hip pain FINDINGS: TENDONS: The insertions of the gluteus medius and gluteus minimus tendons are intact. The insertion of the iliopsoas tendon is intact. Mild left hamstring origin tendinosis. The visible abductor as well as rectus femoris tendon origins are intact. JOINTS: Diffuse severe, near full-thickness chondral loss of the hip is noted with sizable marginal osteophytes. Subtle reactive subchondral marrow edema/cystic changes as well as subchondral sclerosis. There is a multilobulated paralabral cyst arising from the superior labrum measuring approximately 3.3 cm AP dimension. Small posteroinferior paralabral cyst measuring up to 0.6 cm. Additional tinier posterosuperior and posterior intra labral cysts. These findings indicate underlying labral tears. Additional intermediate signal of the labrum is compatible degeneration. There is no evidence of avascular necrosis. No significant hip joint effusion is evident. No significant degenerative changes are noted the included left sacroiliac joint. Mild osteophytosis of the pubic symphysis. OSSEOUS STRUCTURES: No focal marrow replacing lesions are identified. There is no fracture. SOFT TISSUES: Mild atrophy of left gluteus minimus muscle without corresponding edema. No fluid signal intensity is noted at the region of the trochanteric or iliopsoas bursa to indicate bursitis. The visible left sciatic nerve is normal in signal and morphology, without evidence of mass lesion. INTERNAL ORGANS: Evaluation of the internal organs of the pelvis is limited on this small field of view study tailored for evaluation of the musculoskeletal system. Urinary bladder wall prominence is likely secondary to under distension. Otherwise, no gross abnormality is seen in the pelvic organs. Small fat containing left inguinal hernia. IMPRESSION: 1. Advanced osteoarthrosis of the left hip. 2. Multiple paralabral and intra labral cysts indicating underlying labral tears. These findings are superimposed upon labral degeneration. Interpreted by: Aubrey Tong DO Preliminary Report By: Aubrey Tong DO Electronically signed By Aubrey Tong DO Dictated Date: 04/14/2022 3:12:24 PM Prelim Date: 04/14/2022 3:19:31 PM Sign Date: 04/14/2022 3:19:31 PM Ordering Provider: [facility] 04-14-2022 Note ORIGINAL EXAMINATION: MRI OF THE RIGHT HIP WITHOUT CONTRAST04/14/2022 2:47 pm TECHNIQUE: Multiplanar multisequence MRI of the right hip was performed without the administration of intravenous contrast. COMPARISON: Radiographs 06/03/2021. HISTORY: ORDERING SYSTEM PROVIDED HISTORY: Reason for Exam: Severe hip pain. FINDINGS: TENDONS: Mild insertional gluteus minimus tendinosis without evidence of tear. Unremarkable gluteus medius tendon insertion. The insertion of the iliopsoas tendon is intact. Mild hamstring origin tendinosis. JOINTS: Diffuse high-grade, essentially full-thickness chondral loss is noted of the hip with reactive subchondral marrow edema and sizable marginal osteophytes. Complex tearing is noted of the anterior superior acetabular labrum at the approximate 1 to 2 o'clock position. Small associated intra labral cyst. There is also complex tearing of the superior labrum. Linear signal abnormality of the posterior and posteroinferior labrum is noted also compatible with tear. There is no evidence of avascular necrosis. Trace volume hip effusion with synovitis, likely reactive. No significant degenerative changes are noted of the included right sacroiliac joint. OSSEOUS STRUCTURES: No focal marrow replacing lesions are identified. There is no fracture. SOFT TISSUES: Moderate focal atrophy of the gluteus minimus muscle. No significant muscle edema. Advanced atrophy of the proximal rectus femoris myotendinous junction at the caudal aspect of the field of view. No fluid signal intensity is noted at the region of the trochanteric iliopsoas bursa to indicate bursitis. The included portions of the sciatic nerve are normal in signal and morphology, without evidence of mass lesion. INTERNAL ORGANS: Evaluation of the internal organs of the pelvis is limited on this small field of view study tailored for evaluation of the musculoskeletal system. Trabeculated and prominent urinary bladder wall which may relate to under distension versus chronic outlet obstruction. Otherwise, no gross abnormality is seen in the pelvic organs. IMPRESSION: 1. Advanced hip osteoarthrosis. Trace volume hip joint effusion with synovitis, likely reactive. 2. Near circumferential labral tearing. 3. Additional findings, as above. Interpreted by: Aubrey Tong DO Preliminary Report By: Aubrey Tong DO Electronically signed By Aubrey Tong DO Dictated Date: 04/14/2022 3:19:43 PM Prelim Date: 04/14/2022 3:27:09 PM Sign Date: 04/14/2022 3:27:09 PM Ordering Provider: [facility] 04-08-2022 Note HNO ID: [id number] Author: Belinda Beard MD Service: ? Author Type: Physician Type: Progress Notes Filed: 04/23/2022 2:08 PM Note Text: [facility] Department of Cardiovascular Medicine SECTION OF CARDIAC PACING and ELECTROPHYSIOLOGY OUTPATIENT VISIT DATE April 08, 2022 OUTPATIENT VISIT TYPE ESTABLISHED REFERRING PHYSICIAN: Jevon Hanson DO CHIEF COMPLAINT: Here for routine visit for device follow up and CHF. HISTORY OF PRESENT ILLNESS: Mr. 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 Last seen in office with Dr Beard 04/07/2021. He returns today for a routine follow up with a device check. Mr. Sosa reports that he has been recently diagnosed with osteoporosis for which he is supposed to have an MRI. He also has been having problems with his eyes, he reports. He also reports he has had some slight discomfort in my chest maybe four or six times over the year. He is not aware of any trigger for his chest discomfort. He typically takes a TUMS and his chest discomfort resolves. He admits to some slight lightheadedness when I get up from working or leaning over. . PAST CARDIAC HISTORY: PAST MEDICAL HISTORY Diagnosis Date AV block BPH (benign prostatic hyperplasia) CAD (coronary artery disease) CHB (complete heart block) (HCC) HTN (hypertension) NICM (nonischemic cardiomyopathy) (HCC) PAF (paroxysmal atrial fibrillation) (HCC) Presence of biventricular cardiac pacemaker Symptomatic bradycardia PAST SURGICAL HISTORY Procedure Laterality Date ANESTH,PACEMAKER INSERTION 06/15/2018 Medtronic Bi-Ventricular PROSTATE SURGERY HX RT/LT HEART CATHETERS 2007; 2018 SOCIAL HISTORY Social History Tobacco Use Smoking status: Never Passive exposure: Never Smokeless tobacco: Never Vaping Use Vaping Use: Never used Substance Use Topics Alcohol use: Not Currently Drug use: Never FAMILY HISTORY Problem Relation Age of Onset Heart Attack Mother Heart disease Mother Hypertension Mother Hypertension Father Heart disease Father Heart Attack Father Diabetes Father Heart Attack Sister Diabetes Sister Heart Attack Sister ALLERGIES: ALLERGIES No Known Allergies MEDICATIONS: [id number]-epa-fish oil (OMEGA-3 FISH OIL) 300-1,000 mg cap Take by mouth. pravastatin (PRAVACHOL) 40 mg tablet Take 40 mg by mouth. omega-3 acid ethyl esters (LOVAZA) 1 gram capsule Take 1,000 mg by mouth. cholecalciferol, vitamin D3, (VITAMIN D3 ORAL) Take by mouth. multivitamin with iron (DAILY MULTIVITAMINS/IRON ORAL) Take by mouth. carvedilol (COREG) 12.5 mg tablet Take 12.5 mg by mouth twice daily. lisinopril (ZESTRIL, PRINIVIL) 10 mg tablet TAKE 1 TABLET BY MOUTH ONCE DAILY FOR 90 DAYS apixaban (ELIQUIS) 5 mg tab(s) Take 1 tablet by mouth twice daily. REVIEW OF SYSTEMS: See HPI. PHYSICAL EXAMINATION: BP 173/89 (BP Site: Right Arm, BP Position: Sitting, BP Cuff Size: Large Adult) Pulse 65 Ht 182.9 cm (6') Wt 94 kg (207 lb 3.2 oz) SpO2 98% BMI 28.10 kg/m? General: Well appearing, in no acute distress. Skin: No clubbing, no cyanosis. Eyes: Extra ocular movements intact Oropharynx: Teeth in good repair. Neck: No jugular venous distention, no carotid bruits, carotids have a normal upstroke, no palpable thyromegaly. Lungs: Clear to auscultation bilaterally, no wheezing or rhonchi. Heart: Regular rhythm, PMI not displaced, S1, S2 normal, no S3, no S4, no heaves, no rub and no murmur. Abdomen: Soft, nontender, bowel sounds normal, no palpable organomegaly, no bruits. Extremities: No peripheral edema . Grade 2/4 distal pulses bilaterally. Neuro: Oriented to person, place and time, alert, cooperative, gait coordinated. CARDIOVASCULAR MEDICINE TESTING: Device Check: Patient's device was interrogated for medical necessity in the office today by my staff. There was normal device function. Approximately 6.3 years until BR[facility]. There were normal/stable sensing/threshold/impedance values. Ap 40.7%, BiVp 95.3%. There were no atrial arrhythmias detected. There were 8 VT episodes, longest was 8 seconds on 12/01/2022. There were 56 NSVT episodes, longest was 4 seconds on 12/15/2021. [place] shaped histograms. No permanent changes were made. Echocardiogram Report [facility] Procedure date: 09/14/2018 Findings: 1. Normal LV size and systolic function. EF 50% 2. Normal RV size and function PM seen 3. Indeterminate diastolic function (e' 6.4, E/e 6.7 , HENRY 25) 4. Trace TR. RVSP 20 mmHg 5. No masses, vegetation, or thrombus seen 6. Normal IVC Cardiac Catheterizati (more content not included)... [facility] 04-08-2022 Instructions Reji Blanchard RN - 04/08/2022 11:52 AM EST Heart Healthy diet. Please follow a low cholesterol diet. Limit total intake of fats, oils and sweets. Avoid any fried foods. Fish, turkey, lean meats, nonfat dairy products, steamed vegetables and whole grains are all better choices for a low cholesterol diet. No added salt. Please continue with all current medications at present time. Please bring a complete list of your current medications to your next office visit. We will call you with the date and time of your stress test and echocardiogram. Please report to the Cardiac Diagnostics Department. It is located on the 2nd floor of the surgery center on [address] [place] [address] ([facility], operated by [facility]). Business Resiliency Manager and free parking is available. The test may be scheduled at a different location. If this happens the circular stuffer will notify you when calling to give you the date and time information. If you have any questions regarding the test or if you need to cancel / reschedule your appointment, please call [phone] as soon as possible. documented in this encounter [facility] 04-08-2022 History of Presen t illness Narrative Images from the original note were not included. [facility] Department of Cardiovascular Medicine SECTION OF CARDIAC PACING and ELECTROPHYSIOLOGY OUTPATIENT VISIT DATE April 08, 2022 OUTPATIENT VISIT TYPE ESTABLISHED REFERRING PHYSICIAN: Jevon Hanson DO CHIEF COMPLAINT: Here for routine visit for device follow up and CHF. HISTORY OF PRESENT ILLNESS: Mr. 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 Last seen in office with Dr Beard 04/07/2021. He returns today for a routine follow up with a device check. Mr. Sosa reports that he has been recently diagnosed with osteoporosis for which he is supposed to have an MRI. He also has been having problems with his eyes, he reports. He also reports he has had some slight discomfort in my chest maybe four or six times over the year. He is not aware of any trigger for his chest discomfort. He typically takes a TUMS and his chest discomfort resolves. He admits to some slight lightheadedness when I get up from working or leaning over. . PAST CARDIAC HISTORY: PAST MEDICAL HISTORY Diagnosis Date AV block BPH (benign prostatic hyperplasia) CAD (coronary artery disease) CHB (complete heart block) (HCC) HTN (hypertension) NICM (nonischemic cardiomyopathy) ([facility]) PAF (paroxysmal atrial fibrillation) ([facility]) Presence of biventricular cardiac pacemaker Symptomatic bradycardia PAST SURGICAL HISTORY Procedure Laterality Date ANESTH,PACEMAKER INSERTION 06/15/2018 Medtronic Bi-Ventricular PROSTATE SURGERY HX RT/LT HEART CATHETERS 2007; 2018 SOCIAL HISTORY Social History Tobacco Use Smoking status: Never Passive exposure: Never Smokeless tobacco: Never Vaping Use Vaping Use: Never used Substance Use Topics Alcohol use: Not Currently Drug use: Never FAMILY HISTORY Problem Relation Age of Onset Heart Attack Mother Heart disease Mother Hypertension Mother Hypertension Father Heart disease Father Heart Attack Father Diabetes Father Heart Attack Sister Diabetes Sister Heart Attack Sister ALLERGIES: ALLERGIES No Known Allergies MEDICATIONS: vbqzl-[id number]-epa-fish oil (OMEGA-3 FISH OIL) 300-1,000 mg cap Take by mouth. pravastatin (PRAVACHOL) 40 mg tablet Take 40 mg by mouth. omega-3 acid ethyl esters (LOVAZA) 1 gram capsule Take 1,000 mg by mouth. cholecalciferol, vitamin D3, (VITAMIN D3 ORAL) Take by mouth. multivitamin with iron (DAILY MULTIVITAMINS/IRON ORAL) Take by mouth. carvedilol (COREG) 12.5 mg tablet Take 12.5 mg by mouth twice daily. lisinopril (ZESTRIL, PRINIVIL) 10 mg tablet TAKE 1 TABLET BY MOUTH ONCE DAILY FOR 90 DAYS apixaban (ELIQUIS) 5 mg tab(s) Take 1 tablet by mouth twice daily. REVIEW OF SYSTEMS: See HPI. PHYSICAL EXAMINATION: BP 173/89 (BP Site: Right Arm, BP Position: Sitting, BP Cuff Size: Large Adult) Pulse 65 Ht 182.9 cm (6') Wt 94 kg (207 lb 3.2 oz) SpO2 98% BMI 28.10 kg/m General: Well appearing, in no acute distress. Skin: No clubbing, no cyanosis. Eyes: Extra ocular movements intact Oropharynx: Teeth in good repair. Neck: No jugular venous distention, no carotid bruits, carotids have a normal upstroke, no palpable thyromegaly. Lungs: Clear to auscultation bilaterally, no wheezing or rhonchi. Heart: Regular rhythm, PMI not displaced, S1, S2 normal, no S3, no S4, no heaves, no rub and no murmur. Abdomen: Soft, nontender, bowel sounds normal, no palpable organomegaly, no bruits. Extremities: No peripheral edema . Grade 2/4 distal pulses bilaterally. Neuro: Oriented to person, place and time, alert, cooperative, gait coordinated. CARDIOVASCULAR MEDICINE TESTING: Device Check: Patient's device was interrogated for medical necessity in the office today by my staff. There was normal device function. Approximately 6.3 years until [facility]. There were normal/stable sensing/threshold/impedance values. Ap 40.7%, BiVp 95.3%. There were no atrial arrhythmias detected. There were 8 VT episodes, longest was 8 seconds on 12/01/2022. There were 56 NSVT episodes, longest was 4 seconds on 12/15/2021. [place] shaped histograms. No permanent changes were made. Echocardiogram Report [facility] Procedure date: 09/14/2018 Findings: 1. Normal LV size and systolic function. EF 50% 2. Normal RV size and function PM seen 3. Indeterminate diastolic function (e' 6.4, E/e 6.7 , HENRY 25) 4. Trace TR. RVSP 20 mmHg 5. No masses, vegetation, or thrombus seen 6. Normal IVC Cardiac Catheterization Report [facility] Procedure date: 06/13/2018 Findings: 1. No significant coronary artery disease. There was a 40% right coronary artery blockage proximally. This is a very large dominant artery. 2. Left ventricular function is depressed moderately with an ejection fraction between 35% and 40%. 3. Manual pressure was used with wrapping following the procedure. The patient had no complications. Dr. Beard was apprised of the findings. EKG Report [facility] Procedure date: 06/16/2018 Findings: Vent. Rate : 063 BPM Atrial Rate : 357 BPM P-R Int : 000 ms QRS Dur : 118 ms QT Int : 500 ms P-R-T Axes : 000 -59 194 degrees QTc Int : 511 ms Ventricular-paced rhythm with premature ventricular or aberrantly conducted complexes Abnormal ECG Atrial flutter Confirmed by Belinda Beard ([id number]) on 06/20/2018 6:02:59 PM CXR Report [facility] Procedure date: 10/05/2018 Findings: No acute cardiopulmonary disease. Electrophysiology Operative Report [facility] Procedure date: 06/15/2018 Procedure: Procedure Type: BIV Pacemaker implantation Preoperative Diagnosis: complete heart block and EF of 40% - will require 100% pacing Postoperative Diagnosis: complete heart block and EF of 40% - will require 100% pacing Estimated Blood Loss: 30 Complications: none Summary: Successful implantation of a Medtronic BiV Pacemaker (FRAUD EXAMINER-P) I have personally reviewed the Device Check. Assessment IMPRESSION: Mr. Sosa is a 76 year old male. Mr. Sosa reports that he has been recently diagnosed with osteoporosis for which he is supposed to have an MRI. He also has been having problems with his eyes, he reports. He also reports he has had some slight discomfort in my chest maybe four or six times over the year. He is not aware of any trigger for his chest discomfort. He typically takes a TUMS and his chest discomfort resolves. He admits to some slight lightheadedness when I get up from working or leaning over. Discussed the results of today's device download. Complete device interrogation with iterative reprogramming was performed at the bedside. Capture threshold, sensing, and impedances were evaluated in all leads and found to be appropriate. No clinically significant arrhythmias were seen. No permanent programming changes were made. For the chest pain, he was recommended to have a stress test, to which he was agreeable. He reports he has not really had any swelling of his lower legs or hands. He c/o swelling to his knee related to arthritis. He will be unable to have the testing performed until after 05/06/2022. PLAN AND RECOMMENDATIONS: Problem List Items Addressed This Visit Cardiovascular Nonischemic cardiomyopathy (HCC) Relevant Medications perflutren lipid microspheres 1.3 mL in NaCl (PF) 0.9% 10 mL injection (DEFINITY) sodium chloride 0.9 % (flush) 10 mL (BD POSIFLUSH) Other Relevant Orders ECHO NM CARDIAC PERF STRESS/PHARM Other Visit Diagnoses AV block, complete (HCC) - Primary Relevant Medications perflutren lipid microspheres 1.3 mL in NaCl (PF) 0.9% 10 mL injection (DEFINITY) sodium chloride 0.9 % (flush) 10 mL (BD POSIFLUSH) Other Relevant Orders ECHO Chest pain due to myocardial ischemia, unspecified ischemic chest pain type Relevant Orders NM CARDIAC PERF STRESS/PHARM Abnormal electrocardiogram (ECG) (EKG) Relevant Orders NM CARDIAC PERF STRESS/PHARM CONTACT INFORMATION: Jannet Mejia MA documented in this encounter [facility] 03-15-2022 Miscellaneous Notes Elías contacted at this time and notified that Valerie had written a prescription for him and it would be available at the office front window this afternoon. He was asked if he had any recent labs drawn - he stated that he is scheduled to have blood drawn within the week. He was agreeable to asking that the results be forwarded to this office. He also confirmed his next scheduled appointment with Dr. Beard on 04/08/2022 at 1130. Reji Blanchard RN March 15, 2022 1:53 PM No Rx printed. A handwritten Rx for Eliquis 5mg BID was made to be provided to patient. Valerie Espitia PA-C March 15, 2022 1:32 PM PATIENT WILL METALS ANALYST SCRIPT HERE AT THE OFFICE: SCRIPT REFILL: apixaban (ELIQUIS) 5 mg tab(s) Take 1 tab twice daily; 90 day supply (180 tabs) w/ 3 refills Please call and leave msg when script is ready to be picked up at [phone] documented in this encounter [facility] 06-03-2021 Evaluation + Plan note Future Scheduled TestsXR Hip Minimum 4 Views Bilateral 06/03/21 [facility] 04-07-2021 History of Presen t illness Narrative Summary: Abstract Office Visit at [facility] on 04/07/2021 7:31 AM by Belinda Beard Visit Type: Pacemaker check Referring Provider: Jevon Hanson DO Primary Provider: None CC: AV block. 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 Last seen in office 03/19/2020. He is here today for a routine yearly follow up with a device check. Mr. Sosa reports that he has been doing well. He reports, healthwise, it's (the past year) been uneventful. He and his were diagnosed with mild COVID and have both recovered. He denies any episodes of chest pain or dyspnea. He denies any episodes of palpitations. He denies any cardiac-related restrictions. He reports his BP has been alright. He recently started seeing a primary physician. He denies any orthopnea or nocturnal dyspnea. He is scheduled to go to [place] for a couple weeks for a basketball tournament. He denies any adverse effects from his Eliquis. 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 Beard [facility] 2018 Family History Summary: Reviewed history Last on 03/19/2020 and no changes required:04/26/2021 General Comments - FH: Mother: at 85; [place] Father: at 63; DM2; IN Sister: at 52; IN Sister: at 76; DM and IN FH: Diabetes melitus FH: Heart disease FH: HTN Social History: Reviewed history from 03/19/2020 and no changes required: and lives with Tobacco: none ETOH: none Illicits: none Echocardiogram Report The patient's previous report was reviewed. Procedure date: 09/14/2018 Findings: Summary 1. Normal LV size and systolic function. EF 50% 2. Normal RV size and function PM seen 3. Indeterminate diastolic function (e' 6.4, E/e 6.7 , HENRY 25) 4. Trace TR. RVSP 20 mmHg 5. No masses, vegetation, or thrombus seen 6. Normal IVC Cardiac Catheterization Report The patient's previous report was reviewed. Procedure date: 06/13/2018 Findings: FINDINGS: 1. Left main: No significant disease. 2. LAD: No significant disease. 3. Left circumflex: No significant disease. 4. RCA: We used an R5 catheter for this. We found no significant blockage there. There was a 40% proximal lesion. This is a very large dominant artery. 5. Left ventriculogram: EF is depressed with EF of 35% to 40%. CONCLUSION: 1. No significant coronary artery disease. There was a 40% right coronary artery blockage proximally. This is a very large dominant artery. 2. Left ventricular function is depressed moderately with an ejection fraction between 35% and 40%. 3. Manual pressure was used with wrapping following the procedure. The patient had no complications. Dr. Beard was apprised of the findings. EKG Report The patient's previous report was reviewed. Procedure date: 06/16/2018 Findings: Test Reason : RT Vent. Rate : 063 BPM Atrial Rate : 357 BPM P-R Int : 000 ms QRS Dur : 118 ms QT Int : 500 ms P-R-T Axes : 000 -59 194 degrees QTc Int : 511 ms Ventricular-paced rhythm with premature ventricular or aberrantly conducted complexes Abnormal ECG Atrial flutter Confirmed by Belinda Beard ([id number]) on 06/20/2018 6:02:59 PM CXR Report The patient's previous report was reviewed. Procedure date: 10/05/2018 Findings: FINDINGS: Left-sided pacer device is unchanged. Cardiac silhouette is within normal limits and unchanged. Minimal aortic arch calcifications are again noted. No focal consolidation, pneumothorax or pleural effusion. Pulmonary vasculature is within normal limits. No acute osseous abnormality. IMPRESSION: No acute cardiopulmonary disease. Electrophysiology Report The patient's previous report was reviewed. Procedure date: 06/15/2018 Findings: Procedure Type: BIV Pacemaker implantation Preoperative Diagnosis: complete heart block and EF of 40% - will require 100% pacing Postoperative Diagnosis: complete heart block and EF of 40% - will require 100% pacing Estimated Blood Loss: 30 Complications: none Summary: Successful implantation of a Medtronic BiV Pacemaker (FRAUD EXAMINER-P) Comments: The sheath was then removed and the lead affixed to the pectoralis muscle using two silk sutures. The leads were then plugged into the generator and the set screws were then tightened. The leads and device were again tested extensively through the device and all measures were found to be acceptable. After the pocket was irrigated with copious amounts of antibiotic solution and hemostasis assured, the device was placed into the pocket and secured in place with a silk suture. The wound was then closed using three layers of absorbable suture and covered with a steristrip and antibiotic dressing. The procedure was tolerated well, there were no complications, and the patient left the lab in stable condition. Summary: Successful implantation of a Medtronic BiV Pacemaker (FRAUD EXAMINER-P) Risk Factors: Smoked Tobacco Use: Never smoker Smokeless Tobacco Use: Never Passive Smoke Exposure: no HIV High Risk Behavior: no Caffeine Use: 3 drinks per day Exercise: yes Times/wk: 7 Type of Exercise: treadmill Seatbelt Use: 100 % Sun Exposure: frequently Alcohol Use: no Drug Use: no Previous Tobacco Use: Signed On 03/19/2020 Smoked Tobacco Use: Never smoker Smokeless Tobacco Use: Never Passive Smoke Exposure: no HIV High Risk Behavior: no Caffeine Use: 3 drinks per day Exercise: yes Times/wk: 7 Type of Exercise: treadmill Seatbelt Use: 100 % Sun Exposure: frequently Alcohol Use: no Drug Use: no Vital Signs: Patient Profile: 76 Years Old Male Height: 72 inches Weight: 207.8 pounds BMI: 28.18 O2 Sat: 97 % Pulse rate: 67 / minute BP Sittin / 80 (left arm) Cuff size: large Problems: Active problems were reviewed with the patient during this visit. Medications: Medications were reviewed with the patient during this visit. Allergies: Allergies were reviewed with the patient during this visit. No Known Allergy. No Known Drug Allergy. Vitals Entered By: Jannet Mejia MA (April 07, 2021 10:54 AM) Review of Systems No fever, chills, sweats. Complete 10 system ROS was performed and is negative except that which is listed in the HPI Current Meds: Eliquis 5 mg tablet (apixaban) Take 1 tablet by mouth twice a day lisinopril 10 mg tablet (lisinopril) Take 1 tablet by mouth once a day carvedilol 12.5 mg tablet (carvedilol) Take 1 tablet by mouth twice a day [place]-3 Fish Oil 300-1,000 mg capsule (vugdu-2j-tsx-epa-fish oil) Take 1 by mouth once a day * MULTIVITAMINS ORAL CAPSULE Take 1 by mouth once a day Physical Exam General: WD/WN older adult male in NAD; accompanied by his at today's visit. Head: NCAT. Eyes: PERRL. EOMI bilaterally Ears: Hearing grossly intact bilaterally. Nose: no deformity, discharge, or lesions Mouth: Moist oral mucosa. Neck: Supple; no anterior or supraclavicular lymphadenopathy; no carotid bruits noted. Chest Wall: Pacemaker in the left upper lateral chest wall with well healed incision; no evidence of device migration or pocket erosion. Lungs: CTAB; non-labored at rest; no wheezes, rales, or rhonchi Heart: RRR. Normal S1/S2. No obvious murmur. Abdomen: active bowel sounds. Msk: Moves all extremities; normal posture and gait. Pulses: Palpable DP and radial pulses bilaterally. Extremities: warm and dry with trace bilateral LE pitting edema. Neurologic: no focal deficits with normal coordination, muscle strength and tone Skin: intact without lesions or rashes to exposed areas. 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 There was normal device function. Approximately 8.1 years until [facility]. There were normal/stable sensing/threshold/impedance values. Ap 43.8%, BIVp 96.1%. There was 1 episode of Atrial Fibrillation, longest was 48 minutes on 08/01/2020. There were 40 NSVT episodes, longest was 3 seconds on 03/14/2021. There were 4 VT episodes, longest was 11 seconds on 11/27/2020. [place] shaped histograms. No permanent changes were made. Problem # 2: Paroxysmal atrial fibrillation (ICD-427.31) (AYS51-F67.0) He denies any episodes of palpitations. He denies any cardiac-related restrictions. He reports his BP has been alright. He recently started seeing a primary physician. He denies any orthopnea or nocturnal dyspnea. He is scheduled to go to [place] for a couple weeks for a basketball tournament. He denies any adverse effects from his Eliquis. His updated medication list for this problem includes: Lisinopril 10 Mg Tablet (Lisinopril) ..... Take 1 tablet by mouth once a day Carvedilol 12.5 Mg Tablet (Carvedilol) ..... Take 1 tablet by mouth twice a day Problem # 3: Hypertension (ICD-401.9) ([id number]) Blood pressure, measured with this morning's office visit, is 130/80 LUE. Continue current therapy His updated medication list for this problem includes: Lisinopril 10 Mg Tablet (Lisinopril) ..... Take 1 tablet by mouth once a day Carvedilol 12.5 Mg Tablet (Carvedilol) ..... Take 1 tablet by mouth twice a day Orders: Ofc Vst, Est Level III ([id number]) Patient Instructions: 1) Heart Healthy diet. 2) Please continue to follow a low cholesterol diet. Limit total intake of fats, oils and sweets. Avoid any fried foods. Fish, turkey, lean meats, nonfat dairy products, steamed vegetables and whole grains are all better choices for a low cholesterol diet. 3) No added salt. 4) Please continue with all current medications at present time. 5) Please bring a complete list of your current medications to your next visit. 6) Please schedule a follow-up appointment in 1 year. documented in this encounter [facility] Evaluation + Plan note Future Appointments Appointment Date:12/26/2020 10:35:00 AM Scheduled Provider:CHENG SAENZ MD Location:[facility] Appointment Type:[facility] Evaluation + Plan note Future Appointments Appointment Date:02/11/2023 03:00:00 PM Scheduled Provider:CHENG SAENZ MD Location:[facility] App[facility]ment Type:[facility] Pre Op [facility] Diagnosis AV block, complete (HCC)- Primary Atrioventricular block, complete Nonischemic cardiomyopathy (HCC) Other primary cardiomyopathies Chest pain due to myocardial ischemia, unspecified ischemic chest pain type Abnormal electrocardiogram (ECG) (EKG) [facility] Diagnosis Paroxysmal atrial fibrillation (HCC) Atrial fibrillation [facility] Diagnosis Nonischemic cardiomyopathy (HCC) Other primary cardiomyopathies Chest pain due to myocardial ischemia, unspecified ischemic chest pain type Abnormal electrocardiogram (ECG) (EKG) [facility] Diagnosis CHB (complete heart block) (HCC)- Primary Atrioventricular block, complete Nonischemic cardiomyopathy (HCC) Other primary cardiomyopathies Complete atrioventricular block (HCC) Atrioventricular block, complete Biventricular cardiac pacemaker in situ Cardiac pacemaker in situ Paroxysmal atrial fibrillation (HCC) Atrial fibrillation Primary hypertension Unspecified essential hypertension Arteriosclerosis of coronary artery Coronary atherosclerosis of unspecified type of vessel, cheesh-na or graft NSVT (nonsustained ventricular tachycardia) (HCC) Paroxysmal ventricular tachycardia documented in this encounter [facility] course Narrative No data available for this section [facility] Hospital Discharge instructions No data available for this section [facility] Progress note No data available for this section [facility] Reason for referral (narrative)* Diagnostic Procedure Only (Routine) - Pending Review Specialty Diagnoses / Procedures Referred By Contact Referred To Contact [facility] Diagnoses Nonischemic cardiomyopathy (HCC) Chest pain due to myocardial ischemia, unspecified ischemic chest pain type Abnormal electrocardiogram (ECG) (EKG) Procedures NM CARDIAC PERF STRESS/PHARM MYOCARDIAL SPECT MULTIPLE STUDIES Belinda Beard MD [address] [place] [address] [facility] [address] [place] [address] Referral ID Status Reason Start Date Expiration Date Visits Requested Visits Authorized [id number] Pending Review Auto-Generat ed Referral 04/08/2022 05/08/2023 1 1 * Outpatient Procedure (Routine) - Pending Review Specialty Diagnoses / Procedures Referred By Contac t Referred To Contact [facility] Diagnoses AV block, complete (HCC) Nonischemic cardiomyopathy (HCC) Procedures ECHO ECHO TTHRC R-T 2D W/WOM-MODE COMPL SPEC&COLR D Belinda Beard MD [address] [place] [address] [facility] [address] [place] [address] Referral ID Status Reason Start Date Expiration Date Visits Requested Visits Authorized [id number] Pending Review Auto-Generat ed Referral 04/08/2022 04/08/2023 1 1 [facility] for referral (narrative)* Diagnostic Procedure Only (Routine) - Closed Specialty Diagnoses / Procedures Referred By Contact Referred To Contact [facility] Diagnoses Nonischemic cardiomyopathy (HCC) Chest pain due to myocardial ischemia, unspecified ischemic chest pain type Abnormal electrocardiogram (ECG) (EKG) Procedures NM CARDIAC PERF STRESS/PHARM MYOCARDIAL SPECT MULTIPLE STUDIES Belinda Beard MD [address] [place] [address] Molecular [facility] [address] [place] [address] Referral ID Status Reason Start Date Expiration Date V isits Requested Visits Authorized [id number] Closed Auto-Generate d Referral 04/08/2022 05/08/2023 2 2 [facility] for visit Narrative* Diagnostic Procedure Only (Routine) - Closed Specialty Diagnoses / Procedures Referred By Contact Referred To Contact [facility]AGING Diagnoses Nonischemic cardiomyopathy (HCC) Chest pain due to myocardial ischemia, unspecified ischemic chest pain type Abnormal electrocardiogram (ECG) (EKG) Procedures NM CARDIAC PERF STRESS/PHARM MYOCARDIAL SPECT MULTIPLE STUDIES Belinda Beard MD [address] [place] [address] Molecular [facility] [address] [place] [address] Referral ID Status Reason Start Date Expiration Date V isits Requested Visits Authorized [id number] Closed Auto-Generate d Referral 04/08/2022 05/08/2023 2 2 [facility] Summary Purpose Family History No Family History Records Found No data available for this section No data available for this section No Family History Records FoundNo Family History Records Found Advance Directives No Advanced Directives Records FoundNo Advanced Directives Records FoundNo Advanced Directives Records Found Hospital Course Note [facility] Patient Name: ELÍAS SOSA [address] Date of : [address] [address] Unit Number: [id number] Discharge Summary Patient Status: DIS IN Attending Doctor: Kelin Nesbitt DO Service Date: 06/16/18 1602 Discharge Summary Admit Date Admission Date Time: 06/12/18 1437 Anticipated Discharge Date 06/16/18 Final Dx/Problem List 1. Bradycardia 2. CAD (coronary artery disease) 73-year-old male, pmhx CAD, HTN (metoprolol succinate 200mg qd), presents with ALBA, fatigue. EKG: Sinus rhythm with second-degree type II AV block, rate 40, left bundle branch block, QTC 444. CXR: Findings compatible with scarring at the lung bases. No acute abnormalities. CAD-Cath 2007 showed 40% stenosis of the Proximal LAD. schedule the patient for a Left heart catheterization on 06/13. denies chest pain, syncope, personal hx of CAD, edema, palpitations, lightededness, dizziness, melena, hematochezia, hematuria. Bradycardia -pending echocardiogram a (more content not included)... Additional Source Comments (unrecognized sect ion and content) No Status Records FoundNo Status Records FoundNo Status Records Found INFORMATION SOURCE (unrecogn ized section and content) DATE CREATED AUTHOR AUTHOR'S ORGANIZ ATION 03/04/2023 [facility] ([place]) DATE CREATED AUTHOR AUTHOR'S ORGANIZ ATION 03/14/2023 [facility] Care Team (unrecognized sect ion and content) Land Manager Relationship Specialty Start Date End Date Cheng Saenz MD [address] [place] [address] PCP - General Family Medicine 10/18/22 Land Manager Relationship Specialty Start Date End Date Cheng Saenz MD [address] [place] [address] PCP - General [facility] 10/18/22 Land Manager Relationship Specialty Start Date End Date Cheng Saenz MD [address] [place] [address] PCP - General Family Medicine 10/18/22 Source Comments (unrecognize d section and content) In the event this informatio n is protected by the Federal Confidentiality of Alcohol and Drug Abuse Patient Records regulations: The Federal rules restrict any use of the information to criminally investigate or prosecute any alcohol or drug abuse patient.[facility] the event this information is protected by the Federal Confidentiality of Alcohol and Drug Abuse Patient Records regulations: The Federal rules restrict any use of the information to criminally investigate or prosecute any alcohol or drug abuse patient.[facility] the event this information is protected by the Federal Confidentiality of Alcohol and Drug Abuse Patient Records regulations: The Federal rules restrict any use of the information to criminally investigate or prosecute any alcohol or drug abuse patient.[facility] the event this information is protected by the Federal Confidentiality of Alcohol and Drug Abuse Patient Records regulations: The Federal rules restrict any use of the information to criminally investigate or prosecute any alcohol or drug abuse patient.[facility] the event this information is protected by the Federal Confidentiality of Alcohol and Drug Abuse Patient Records regulations: The Federal rules restrict any use of the information to criminally investigate or prosecute any alcohol or drug abuse patient.[facility] the event this information is protected by the Federal Confidentiality of Alcohol and Drug Abuse Patient Records regulations: The Federal rules restrict any use of the information to criminally investigate or prosecute any alcohol or drug abuse patient.[facility] the event this information is protected by the Federal Confidentiality of Alcohol and Drug Abuse Patient Records regulations: The Federal rules restrict any use of the information to criminally investigate or prosecute any alcohol or drug abuse patient.[facility] the event this information is protected by the Federal Confidentiality of Alcohol and Drug Abuse Patient Records regulations: The Federal rules restrict any use of the information to criminally investigate or prosecute any alcohol or drug abuse patient.[facility] the event this information is protected by the Federal Confidentiality of Alcohol and Drug Abuse Patient Records regulations: The Federal rules restrict any use of the information to criminally investigate or prosecute any alcohol or drug abuse patient.[facility] the event this information is protected by the Federal Confidentiality of Alcohol and Drug Abuse Patient Records regulations: The Federal rules restrict any use of the information to criminally investigate or prosecute any alcohol or drug abuse patient.[facility] the event this information is protected by the Federal Confidentiality of Alcohol and Drug Abuse Patient Records regulations: The Federal rules restrict any use of the information to criminally investigate or prosecute any alcohol or drug abuse patient.[facility] the event this information is protected by the Federal Confidentiality of Alcohol and Drug Abuse Patient Records regulations: The Federal rules restrict any use of the information to criminally investigate or prosecute any alcohol or drug abuse patient.[facility] Reason for Visit (unrecogniz ed section and content) Reason Comments Device Check Medtronic BiV PPM im planted for AV block Reason Onset Date Comments Refill Request 04/27/2022 Reason Comments Appointment Reason Comments Radiology NM Reason Comments Follow Up Medtronic BiV PPM im planted for NICM and AV block Reason Comments Cardiac Clearance [facility] clearance Reason Comments Cardiac Clearance Care Team (unrecognized sect ion and content) Care Team Personnel Name: CHENG SAENZ MD Position: P4 Physician - Primary Care Member Role: Primary Care Physician Address: Address: [address] [place] [address] Care Team Related Persons Name: LEFTYHectorALBERTA EUGENE Address: [address] [place], [place] [id number] FOR RECORDS PERTAINING TO PATIENTS WHO ARE OR HAVE BEEN ENROLLED IN A CHEMICAL DEPENDENCY/SUBSTANCEABUSE PROGRAM, SOME INFORMATION MAY BE OMITTED. This clinical summary was aggregated from multiple sources. Caution should be exercised in using it in the provision of clinical care. This summary normalizes information from multiple sources, and as a consequence, information in this document may materially change the coding, format and clinical context of patient data. In addition, data may be omitted in some cases. CLINICAL DECISIONS SHOULD BE BASED ON THE PRIMARY CLINICAL RECORDS. [facility] [employer] [facility]. provides no warranty or guarantee of the accuracy or completeness of information in this document.
== END | disposition home or self-care (01) ==
LOC: LABSPEC 15:36
PROVIDERS: Referring Provider Orthopaedic Surgery; Visit Provider Orthopaedic Surgery
DX: M16.11 Unilateral primary osteoarthritis, right hip (principal)
CPT/HCPCS: 88305; 88311